=== PATIENT | female | born 1970 | race Caucasian/White ===

== ENCOUNTER → 2017-01-23 | Outpatient (CLI) | payer OTHER ==
[~2017-01-23] MED LIST: ANT12.5 PO; COL100 PO; DEPAKOTE500 MG PO; INDERAL LA80 MG PO; KEP500 PO; LAC PO; LAC30L PO; SYNTHROID0.025 MG PO
== END | disposition home or self-care (01) ==
LOC: US 08:11
PROC: BU4CZZZ Ultrasonography of Uterus and Ovaries (ICD-10-PCS; principal; 2017-01-23)
DX: N92.1 Excessive and frequent menstruation with irregular cycle (principal)